=== PATIENT | female | born 1975 | race Asian ===

== ENCOUNTER 2017-10-03 11:10 | Inpatient (IN) | payer SELFPAY ==
[~2017-10-03] VITALS: Ht 167.6 cm; Wt 68.9 kg
[2017-10-03 11:31] VITALS: BP 113/55
[2017-10-03] MEDS ORDERED: OXYTOCIN 20 UNITS in LACTATED RINGERS 1,000 ML IV SCH (12:04)
[2017-10-03] MEDS ORDERED: BETAMETH ACET/BETAMETH NA PH 30 MG/5 ML VIAL IM STA (12:04)
[2017-10-03] MEDS ORDERED: METHYLERGONOVINE 0.2 MG/ML AMP IM PRN (12:05)
[2017-10-03] MEDS ORDERED: NALBUPHINE 10 MG/ML AMP IVP PRN (12:05)
[2017-10-03] MEDS ORDERED: PROMETHAZINE 25 MG/ML VIAL IVP PRN (12:05)
[2017-10-03] MEDS ORDERED: IBUPROFEN 800 MG TAB PO PRN (12:05)
[2017-10-03] MEDS ORDERED: CARBOPROST 250 MCG/ML AMP IM PRN (12:05)
[2017-10-03] MEDS ORDERED: BETAMETH ACET/BETAMETH NA PH 30 MG/5 ML VIAL IM ONE (12:12)
[2017-10-03] MEDS ORDERED: PREN-546 PO (12:14)
[2017-10-03] MEDS ORDERED: AMPICILLIN 2,000 MG VIAL ONE ×3 (12:14→20:56)
[2017-10-03] MEDS ORDERED: AMPICILLIN 2,000 MG in NACL 0.9% 100 ML IV ONE (12:15)
[2017-10-03] MEDS: BETAMETH ACET/BETAMETH NA PH 30 MG/5 ML VIAL IM SCH (12:32)
[2017-10-03] MEDS: LACTATED RINGERS 1,000 ML IV SCH ×2 (12:45→20:56)
[2017-10-03 14:13] LABS: BASOPHILS % (AUTO) 0.3 % (0.0-2.0); EOSINOPHILS # (AUTO) 0.1 K/uL (0-0.4); EOSINOPHILS % (AUTO) 0.6 % (0.0-4.0); HEMATOCRIT 38.9 % (36-48); HEMOGLOBIN 12.4 g/dL (12.0-16.0); LYMPHOCYTES # (AUTO) 1.5 K/uL (2.5-16.5); LYMPHOCYTES % (AUTO) 13.4 % (20.5-51.1); MEAN CORPUSCULAR HEMOGLOBIN 26 pg (27-31); MEAN CORPUSCULAR HGB CONC 32 g/dL (33-37); MONOCYTES # (AUTO) 0.9 K/uL (0.8-1.0); MONOCYTES % (AUTO) 7.5 % (1.7-9.3); NEUTROPHILS % (AUTO) 78.2 % (42.2-75.2); PLATELET COUNT (AUTO) 205 K/uL (140-450); RED BLOOD CELL COUNT(AUTO) 4.69 MIL/uL (4.20-5.40); RED CELL DISTRIBUTION WIDTH 17.6 % (11.6-13.7); WHITE BLOOD COUNT (AUTO) 11.5 K/uL (4.8-10.8)
[2017-10-03 14:17] LABS: APPEARANCE,URINE CLEAR (CLEAR); BILIRUBIN,URINE NEGATIVE (NEGATIVE); BLOOD, URINE 2+ (NEGATIVE); COLOR,URINE YELLOW (YELLOW); LEUKOCYTE ESTERASE ,URINE NEGATIVE (NEGATIVE); NITRITE, URINE NEGATIVE (NEGATIVE); UGLUCOSE NEGATIVE (NEGATIVE)
[2017-10-03 14:24] LABS: ANION GAP 15.2 (8-16); CARBON DIOXIDE 23.6 mmol/L (21-32); CREATININE 0.4 mg/dL (0.6-1.3); POTASSIUM 3.8 mmol/L (3.5-5.1)
[2017-10-03 14:32] LABS: ALBUMIN 2.9 g/dL (3.4-5.0); RBC,URINE 3-10 (FEW) /HPF (0-5); TOTAL BILIRUBIN 0.3 mg/dL (0.0-1.0); WBC,URINE 0-5 (RARE) /HPF (0-5)
[2017-10-03] MEDS ORDERED: AMPICILLIN 1,000 MG VIAL IVP SCH (16:00)
[2017-10-03] MEDS ORDERED: AMPICILLIN 2,000 MG in NACL 0.9% 100 ML IV SCH (20:00)
[2017-10-03] MEDS: AMPICILLIN 2,000 MG in NACL 0.9% 100 ML IV SCH (20:55)
[2017-10-04] MEDS ORDERED: BUPIVACAINE 0.125%/NS PREMIX 250 ML ONE (00:11)
[2017-10-04] MEDS: LACTATED RINGERS 1,000 ML IV SCH ×2 (00:20→06:27)
[2017-10-04] MEDS: BETAMETH ACET/BETAMETH NA PH 30 MG/5 ML VIAL IM SCH (00:33)
[2017-10-04] MEDS ORDERED: BUPIVACAINE 0.125%/NS PREMIX 250 ML EPI SCH (00:35)
[2017-10-04] MEDS: AMPICILLIN 2,000 MG in NACL 0.9% 100 ML IV SCH ×2 (01:00→05:23)
[2017-10-04] MEDS ORDERED: OXYTOCIN 10 UNITS/ML VIAL IM SCH (01:00)
[2017-10-04] MEDS ORDERED: AMPICILLIN 2,000 MG VIAL ONE ×2 (01:01→05:23)
[2017-10-04] MEDS ORDERED: OXYTOCIN 10 UNITS/ML VIAL ONE (06:47)
[2017-10-04] MEDS ORDERED: OXYTOCIN 20 UNITS/LR PREMIX 1,000 ML IV ONE (06:47)
--- NOTE | 2017-10-04 15:04 | NUR ---
PATIENT HAS BEEN SCREENED AND CATEGORIZED LOW NUTRITION RISK. PATIENT WILL BE SEEN WITHIN 7 DAYS OF ADMISSION. 10/10/[address]
[2017-10-04] MEDS ORDERED: oxyCODONE/APAP 5/325 MG 1 TAB TAB PO PRN (16:55)
[2017-10-04] MEDS ORDERED: BENZOCAINE/MENTHOL 20%-0.5% 60 GM CAN TP PRN (16:55)
[2017-10-04] MEDS ORDERED: HYDROcodone/APAP 5/325 MG 1 TAB TAB PO PRN (16:55)
[2017-10-04] MEDS ORDERED: SODIUM PHOSPHATE 118 ML ENEM RC PRN (16:55)
[2017-10-04] MEDS ORDERED: METHYLERGONOVINE 0.2 MG/ML AMP IM PRN (16:55)
[2017-10-04] MEDS ORDERED: TEMAZEPAM 15 MG CAP PO PRN (16:55)
[2017-10-04] MEDS ORDERED: MEASLES, MUMPS, AND RUBELLA 1 VIAL SQVAC PRN (16:55)
[2017-10-04] MEDS ORDERED: DOCUSATE SOD/SENNA 50/8.6 MG 1 TAB PO SCH (21:00)
[2017-10-05 07:30] LABS: RAPID PLASMA REAGIN NON-REACTIVE (Non Reactiv)
[2017-10-05 08:37] LABS: HEMATOCRIT 33.2 % (36-48); HEMOGLOBIN 10.5 g/dL (12.0-16.0)
== END 2017-10-05 11:40 | disposition home or self-care (01) | DRG 775 ==
LOC: MLD 11:10 → MFCC 10-04 14:04
PROVIDERS: ADMIT Obstetrics & Gynecology; ATTEND Obstetrics & Gynecology
PROC: 10E0XZZ Delivery of Products of Conception, External Approach (ICD-10-PCS; principal; 2017-10-04)
PROC: 0KQM0ZZ Repair Perineum Muscle, Open Approach (ICD-10-PCS; 2017-10-04)
PROC: 3E0R3BZ Introduction of Anesthetic Agent into Spinal Canal, Percutaneous Approach (ICD-10-PCS; 2017-10-04)
PROC: 00HU33Z Insertion of Infusion Device into Spinal Canal, Percutaneous Approach (ICD-10-PCS; 2017-10-04)
DX: O42.92 Full-term premature rupture of membranes, unspecified as to length of time between rupture and onset of labor (principal); O70.1 Second degree perineal laceration during delivery; Z3A.35 35 weeks gestation of pregnancy; Z37.0 Single live birth; Z28.21 Immunization not carried out because of patient refusal
CPT/HCPCS: 36415; 80053; 81001; 85018; 85025; 86592; 86886; 86900; 86901; 87653-90; J0290; J0702; J2590; J3490; J7120